=== PATIENT | male | born 1940 ===

== ENCOUNTER 2017-02-18 12:12 | Outpatient (CLI) | payer MEDICARE ==
[2017-02-18 16:13] LABS: Thyroid Stimulating Hormone 1.6198 uIU/mL (0.35-4.94)
[2017-02-19 21:22] LABS: T4 5.1 ug/dL (4.87-11.72)
== END 2017-02-18 12:13 | disposition home or self-care (01) ==
LOC: NAVSJIPCSP 12:12
PROVIDERS: ATTEND Otolaryngology
DX: E03.9 Hypothyroidism, unspecified (principal)
CPT/HCPCS: 84436; 84443; 84481; 84482